=== PATIENT | female | born 1960 | race Native Hawaiian/Other Pacific Islander ===

== ENCOUNTER 2017-01-01 07:29 | Outpatient (CLI) | payer BC | END 2017-01-01 19:25 | disposition home or self-care (01) | LOC: CT 07:29 | DX: K46.9 Unspecified abdominal hernia without obstruction or gangrene (principal); R31.1 Benign essential microscopic hematuria | CPT/HCPCS: 36415; 82565; 84520; Q9963 ==

== ENCOUNTER 2017-09-20 11:50 | Outpatient (CLI) | payer BC | END 2017-09-20 12:50 | disposition home or self-care (01) | LOC: RAD 11:50 | DX: M25.561 Pain in right knee (principal) ==

== ENCOUNTER 2021-07-04 13:26 | Outpatient (CLI) | payer OTHER | END 2021-07-04 19:09 | disposition home or self-care (01) | LOC: RAD 13:26 | PROVIDERS: ATTEND Registered Nurse | DX: R05 Cough (principal) ==

== ENCOUNTER 2022-03-17 20:44 | Emergency (ER) | payer OTHER ==
[~2022-03-17] VITALS: Ht 175.3 cm; Wt 116.1 kg
[2022-03-17 21:30] LABS: PLATELET COUNT 414 K/uL (152-353)
[2022-03-17 22:20] LABS: POTASSIUM 3.6 mmol/L (3.6-5.2)
[2022-03-18 01:19] VITALS: BP 157/85; TEMP 98.5
== END 2022-03-18 01:19 | disposition short-term general hospital (02) ==
LOC: ED 20:44
PROVIDERS: Emergency Medicine
DX: K52.89 Other specified noninfective gastroenteritis and colitis (principal); R11.2 Nausea with vomiting, unspecified; R19.7 Diarrhea, unspecified; Z11.52 Encounter for screening for COVID-19
CPT/HCPCS: 36415; 80053; 82150; 83690; 85027; 87635; 96361; 96365; 96375; 96376; 99285; J0696; J1170; J2175; J2405; J3490; Q9963; U0003

== ENCOUNTER 2023-07-23 07:52 | Observation (INO) | payer OTHER ==
[~2023-07-23] VITALS: Ht 175.3 cm; Wt 109.8 kg
[2023-07-23] VITALS: BP 125/64; TEMP 98.8
[2023-07-23 07:52] VITALS: BP 146/96; TEMP 97.6
[2023-07-23 08:15] LABS: PLATELET COUNT 156 K/uL (152-353)
[2023-07-23 08:27] LABS: POTASSIUM 2.4 mmol/L (3.6-5.2)
[2023-07-23 12:00] VITALS: BP 138/89
[2023-07-23 14:07] VITALS: BP 145/55; TEMP 98; Ht 175.3 cm; Wt 109.8 kg
[2023-07-23] MEDS ORDERED: ERYTOIN OPTH (14:53)
[2023-07-23] MEDS ORDERED: LOSARTAN PO (14:53)
[2023-07-23] MEDS ORDERED: HCTZ PO (14:53)
[2023-07-23] MEDS ORDERED: ONDANSETRON HCL ODT PO (14:54)
[2023-07-23] MEDS ORDERED: PROCHLORPER10 MG PO (14:54)
[2023-07-23] MEDS ORDERED: TRIAMCINOLON0.5 % TOP (14:55)
[2023-07-23] MEDS ORDERED: IMODIUM A-D2 M2 PO (14:56)
[2023-07-23 15:00] VITALS: BP 125/57; TEMP 97.5
[2023-07-23 20:00] VITALS: BP 117/66; TEMP 98.9
[2023-07-24] VITALS: BP 125/64; TEMP 98.8
[2023-07-24 04:00] VITALS: BP 119/57; TEMP 98
[2023-07-24 08:00] VITALS: BP 132/70; TEMP 97.8
[2023-07-24 12:10] VITALS: BP 125/62; TEMP 97.9
[2023-07-24 12:16] LABS: PLATELET COUNT 133 K/uL (152-353)
[2023-07-24 12:26] LABS: POTASSIUM 2.8 mmol/L (3.6-5.2)
[2023-07-24 15:54] VITALS: BP 134/52; TEMP 97.8
[2023-07-24 20:00] VITALS: BP 133/63; TEMP 97.9
[2023-07-25] VITALS (7 sets, daily range): BP systolic 127–149; BP diastolic 56–73; TEMP 97.6–98.3
[2023-07-25 05:09] LABS: POTASSIUM 3.2 mmol/L (3.6-5.2)
[2023-07-25 05:24] LABS: PLATELET COUNT 145 K/uL (152-353)
[2023-07-25] MEDS ORDERED: CHOL4POW11 PO (15:00)
[2023-07-25] MEDS ORDERED: POTA20TA4 PO (15:03)
[2023-07-25] MEDS ORDERED: LOSA50TA PO (15:05)
[2023-07-25 21:35] LABS: POTASSIUM 3.5 mmol/L (3.6-5.2)
[2023-07-26 04:00] VITALS: BP 125/63; TEMP 97.7
[2023-07-26 07:55] VITALS: BP 153/69; TEMP 97.2
== END 2023-07-26 10:10 | disposition home or self-care (01) ==
LOC: ED 07:52 → MED/SURG 12:07
PROVIDERS: ADMIT Family Medicine; ATTEND Internal Medicine
DX: R11.2 Nausea with vomiting, unspecified (principal); R19.7 Diarrhea, unspecified; C50.919 Malignant neoplasm of unspecified site of unspecified female breast; E87.6 Hypokalemia; E83.42 Hypomagnesemia; E86.0 Dehydration; Z92.21 Personal history of antineoplastic chemotherapy; Z79.899 Other long term (current) drug therapy
CPT/HCPCS: 36415; 80048; 80053; 80307; 81000; 83605; 83630; 83690; 83735; 85027; 87015; 87040; 87045; 87086; 87088; 87324; 87328; 87329; 87449; 87899; 96360; 96361; 96365; 96366; 96367; 99221; 99284; G0378; J0132; J2270; J2405; J3475; J3480